=== PATIENT | female | born 1995 | race African-American/Black ===

== ENCOUNTER 2017-03-28 14:17 | Emergency (ER) | payer BC, MEDICAID ==
[~2017-03-28] VITALS: Ht 160 cm; Wt 54.5 kg
[~2017-03-28 14:17] MED LIST: DICL50TA3 PO
[2017-03-28 14:19] VITALS: BP 135/88; PULSE 88; RESP 15; TEMP 98.4; O2SAT 98
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
[2017-03-28] MEDS ORDERED: IBUPROFEN 800 MG TAB PO ONE (16:00)
[2017-03-28] MEDS ORDERED: METHOCARBAMOL 500 MG TAB PO ONE (16:00)
[2017-03-28] MEDS ORDERED: IBUP800T23 PO (16:15)
[2017-03-28] MEDS ORDERED: ROBA500T PO (16:15)
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
== END 2017-03-28 17:28 | disposition home or self-care (01) ==
LOC: NEPK 14:17
DX: S16.1XXA Strain of muscle, fascia and tendon at neck level, initial encounter (principal); S99.912A Unspecified injury of left ankle, initial encounter; S99.922A Unspecified injury of left foot, initial encounter; W03.XXXA Other fall on same level due to collision with another person, initial encounter
CPT/HCPCS: 73610; 73630; 99283; E0113; L1906

== ENCOUNTER 2017-11-20 16:24 | Emergency (ER) | payer OTHER, BC ==
[~2017-11-20] VITALS: Ht 160 cm; Wt 60.0 kg
[~2017-11-20 16:24] MED LIST changes: -DICL50TA3 PO; +IBUP1TAB7 PO; +ROBA500T PO
[2017-11-20 16:59] VITALS: BP 134/86; PULSE 91; RESP 18; TEMP 98.4; O2SAT 100
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
[2017-11-20] MEDS ORDERED: IBUPROFEN 600 MG TAB PO ONE (17:15)
[2017-11-20] MEDS ORDERED: traMADol HCL 50 MG TAB PO ONE (17:15)
[2017-11-20] MEDS ORDERED: CYCLOBENZAPRINE HCL 10 MG TAB PO ONE (17:15)
[2017-11-20] MEDS ORDERED: IBUP-232 PO (17:18)
[2017-11-20] MEDS ORDERED: CYCL10TA PO (17:18)
== END 2017-11-20 17:43 | disposition home or self-care (01) ==
LOC: NEPK 16:24
DX: S16.1XXA Strain of muscle, fascia and tendon at neck level, initial encounter (principal); V44.6XXA Car passenger injured in collision with heavy transport vehicle or bus in traffic accident, initial encounter
CPT/HCPCS: 99283